=== PATIENT | male | born 1985 | race African-American/Black ===

== ENCOUNTER 2017-12-24 09:23 | Emergency (ER) | payer SELFPAY ==
[~2017-12-24] VITALS: Ht 180.3 cm; Wt 90.7 kg
--- NOTE | 2017-12-24 09:40 | NUR ---
BB FOR ANXIETY; PT IS HYPERVENTILATING, STS HE COULD NOT FEEL ANYTHING FROM WAIST UP. REPORTS UNABLE TO STAND UP. VSS. SEEN BY MD FOR EVAL. REMAINS AT BS. SAFETY AND COMFORT MEASURES PROVIDED. WILL MONITOR.
--- NOTE | 2017-12-24 10:25 | NUR ---
PT GIVEN URINAL BUT INSISTS ON WALKING TO THE RESTROOM. REPORTS UNABLE TO STAND UP BY HIMSELF, SAFELY ASSISTED VIA WHEELCHAIR TO THE RESTROOM TO URINATE.
--- NOTE | 2017-12-24 10:50 | NUR ---
FAMILY MEMBER AT AND REQUESTED COPY OF EKG- COPY PROVIDED.
[2017-12-24] MEDS ORDERED: LORAZEPAM 1 MG TABLET ONE (10:52)
[2017-12-24] MEDS ORDERED: LORAZEPAM 0.5 MG TABLET PO ONE (11:00)
--- NOTE | 2017-12-24 11:00 | NUR ---
DPatient discharged to home in stable condition. Written and verbal after care instructions given. Patient verbalizes understanding of instruction.
[2017-12-24 11:12] VITALS: BP 149/89
== END 2017-12-24 11:13 | disposition home or self-care (01) ==
LOC: ER 09:26
DX: F41.1 Generalized anxiety disorder (principal); F41.0 Panic disorder [episodic paroxysmal anxiety]
CPT/HCPCS: 93005; 99284; A4606; Z7610